=== PATIENT | male | born 1970 | race Caucasian/White ===

== ENCOUNTER 2016-10-29 10:37 | Emergency (ER) | payer BC ==
[~2016-10-29] VITALS: Ht 160 cm; Wt 95.0 kg
[~2016-10-29 10:37] MED LIST: ALBU2.5V3 NEB; ALBU8.5H3 INH; AZIT250T94 PO; BECL8.7A INH; PRED20TA PO; PRED50TA PO
[2016-10-29 10:39] VITALS: Ht 160 cm; Wt 95.0 kg
[2016-10-29] MEDS ORDERED: ALBUTEROL 0.5% (NEB) 2.5 MG/0.5 ML AMP HHN STA (11:27)
[2016-10-29] MEDS ORDERED: IPRATROPIUM (NEB) 0.5 MG/2.5 ML AMP HHN ONE (11:30)
[2016-10-29] MEDS ORDERED: METHYLPREDNISOLONE 125 MG INJ IV ONE (11:30)
[2016-10-29 12:47] LABS: BASOPHILS % 0.6 % (0.0-2.0); EOSINOPHILS # 0.4 10^3/ul (0.0-0.5); EOSINOPHILS % 5.9 % (0.0-7.0); HEMATOCRIT 42.8 % (42.0-52.0); HEMOGLOBIN 14.6 g/dl (14.0-18.0); LYMPHOCYTES # 2.2 10^3/ul (0.8-2.9); LYMPHOCYTES % 30.7 % (15.0-51.0); MEAN CORPUSCULAR HEMOGLOBIN 30.1 pg (29.0-33.0); MEAN CORPUSCULAR HGB CONC 34.1 g/dl (32.0-37.0); MEAN CORPUSCULAR VOLUME 88.2 fl (82.0-101.0); MEAN PLATELET VOLUME 10.1 fl (7.4-10.4); MONOCYTE # 0.6 10^3/ul (0.3-0.9); MONOCYTES % 9.1 % (0.0-11.0); NEUTROPHIL # 3.7 10^3/ul (1.6-7.5); NEUTROPHILS % 53.4 % (39.0-77.0); PLATELET COUNT 290 10^3/UL (140-415); RED BLOOD COUNT 4.85 10^6/ul (4.70-6.10); RED CELL DISTRIBUTION WIDTH 12.4 % (11.5-14.5)
--- NOTE | 2016-10-29 13:27 | RADRPT ---
PROCEDURE: XR Chest. CLINICAL INDICATION: Shortness of breath TECHNIQUE: Chest PA. COMPARISON: 09/17/2016 FINDINGS: The mediastinal structures are unremarkable. The heart is normal in size and configuration. The pu lmonary vascularity is normal. The lung sheridan are unremarkable. No consolidation is identified. The pleural spaces are unremarkable. The axial skeleton is unremarkable. IMPRESSION: No active intrathoracic disease. RPTAT: [facility] .Munir Sandhu MD, MD Date Time Electronically viewed and signed by .Munir Sandhu MD, on 10/29/2016 13:27 .B/
[2016-10-29 13:33] LABS: POTASSIUM 4.1 mmol/L (3.5-5.1)
[2016-10-29 13:36] LABS: CREATININE 0.86 mg/dl (0.61-1.24)
[2016-10-29 13:37] LABS: CALCIUM 9.3 mg/dl (8.4-10.2)
[2016-10-29] MEDS ORDERED: PRED20TA PO (14:07)
[2016-10-29] MEDS ORDERED: AZIT250T94 PO (14:07)
--- NOTE | 2016-10-29 14:10 | ERD ---
ER Documentation Chief Complaint Date/Time DATE: 10/29/16 TIME: 14:08 Chief Complaint Complains of SOB Hx of Asthma HPI This 38-year-old male complains of cough and wheezing and productive mucus worsening over last week. Denies fevers, chest pain, vomiting, abdominal pain. He is using a nebulizer was inhalers at home and Singulair. ROS All systems reviewed and are negative except as per history of present illness. Medications Home Meds Active Scripts Prednisone* (Prednisone*) 20 Mg Tab, 60 MG PO DAILY for 6 Days, TAB 60 mg an hour for 3 days then 40 mg by mouth for 3 days. Prov:LUCY HAWKINS MD 10/29/16 Azithromycin* (Zithromax*) 250 Mg Tablet, 250 MG PO .ZPACK DIRECTED, #6 TAB TAKE 500 MG (2 TABS) THE FIRST DAY THEN 250 MG (1 TAB) DAYS 2-5 Prov:LUCY HAWKINS MD 10/29/16 Azithromycin* (Zithromax*) 250 Mg Tablet, 250 MG PO .ZPACK DIRECTED, #6 TAB TAKE 500 MG (2 TABS) THE FIRST DAY THEN 250 MG (1 TAB) DAYS 2-5 Prov:ZEINAB TITUS PA-C 09/17/16 Prednisone* (Prednisone*) 20 Mg Tab, 40 MG PO DAILY for 4 Days, TAB Prov:ZEINAB TITUS PA-C 09/17/16 Albuterol Sulfate* (Proair HFA*) 8.5 Gm Hfa.aer.ad, 2 PUFF INH Q4, #1 INHALER Prov:ZEINAB TITUS PA-C 09/17/16 Albuterol Sulfate* (Albuterol Sulfate* Neb) 0.083%-3 Ml Neb, 2.5 MG NEB Q4H, # 30 VIAL Prov:ZEINAB TITUS PA-C 09/17/16 Prednisone* (Prednisone*) 50 Mg Tablet, 50 MG PO DAILY, #4 TAB Prov:KEVIN LINK PA-C 08/23/16 Albuterol Sulfate* (Proair HFA*) 8.5 Gm Hfa.aer.ad, 2 PUFF INH Q4, #1 INHALER Prov:KEVIN LINK PA-C 08/23/16 Prednisone* (Prednisone*) 20 Mg Tab, 60 MG PO DAILY for 5 Days, TAB Prov:CHAD OLIVERA MD 03/22/16 Albuterol Sulfate* (Proair HFA*) 8.5 Gm Hfa.aer.ad, 2 PUFF INH Q4, #1 INHALER Prov:CHAD OLIVERA MD 03/22/16 Beclomethasone Dip* (Qvar 40*) 7.3 Gm Inha, 2 PUFF INH BID, #1 INHALER Prov:CHAD OLIVERA MD 03/22/16 Allergies Allergies: Coded Allergies: No Known Allergy (Unverified , 03/22/16) PMhx/Soc History of Surgery: No (left knee) Anesthesia Reaction: No Hx Neurological Disorder: No Hx Respiratory Disorders: Yes (ASTHMA) Hx Cardiac Disorders: No Hx Psychiatric Problems: No Hx Miscellaneous Medical Probl: No Hx Alcohol Use: No Hx Substance Use: No Hx Tobacco Use: No Physical Exam Vitals Vital Signs Date Time Temp Pulse Resp B/P Pulse Ox O2 Delivery O2 Flow Rate FiO2 10/29/16 11:57 82 20 96 21 10/29/16 10:39 98.3 77 20 129/78 95 Physical Exam Const: [] Alert, [id number]. Head: Atraumatic Eyes: Normal Conjunctiva ENT: Normal External Ears, Nose and Mouth. TMs normal Neck: Full range of motion..~ No meningismus. Resp: Clear to auscultation bilaterally. Diffuse wheezing without rales or retractions. Cardio: Regular rate and rhythm, no murmurs Abd: Soft, non tender, non distended. Normal bowel sounds Skin: No petechiae or rashes Back: No midline or flank tenderness Ext: No cyanosis, or edema Neur: Awake and alert Psych: Normal Mood and Affect Result Diagram: 10/29/16 1207 10/29/16 1207 Results 24 hrs Laboratory Tests Test 10/29/16 12:07 Anion Gap 15 Basophils # 0.010^3/ul Basophils % 0.6% Blood Urea Nitrogen 14mg/dl Calcium Level 9.3mg/dl Carbon Dioxide Level 30mmol/L Chloride Level 99mmol/L Creatinine 0.86mg/dl Eosinophils # 0.410^3/ul Eosinophils % 5.9% Glucose Level 83mg/dl Hematocrit 42.8% Hemoglobin 14.6g/dl Lymphocytes # 2.210^3/ul Lymphocytes % 30.7% Mean Corpuscular Hemoglobin 30.1pg Mean Corpuscular Hemoglobin Concent 34.1g/dl Mean Corpuscular Volume 88.2fl Mean Platelet Volume 10.1fl Monocytes # 0.610^3/ul Monocytes % 9.1% Neutrophils # 3.710^3/ul Neutrophils % 53.4% Nucleated Red Blood Cells # 0.010^3/ul Nucleated Red Blood Cells % 0.0/100WBC Platelet Count 28815^3/UL Potassium Level 4.1mmol/L Red Blood Count 4.8510^6/ul Red Cell Distribution Width 12.4% Sodium Level 140mmol/L White Blood Count 7.010^3/ul Current Medications Medications (Trade) Dose Ordered Sig/Leisa Route PRN Reason Start Time Stop Time Status Last Admin Dose Admin Methylprednisolone Sodium Succinate (Solu-Medrol) 125 mg ONCE ONCE IV 10/29/16 11:30 10/29/16 11:31 DC 10/29/16 12:00 Albuterol (Proventil 0.5% (Neb)) 10 mg ONCE STAT N 10/29/16 11:27 10/29/16 11:30 DC 10/29/16 11:54 Ipratropium Moon (Atrovent 0.02% (Neb)) 0.5 mg ONCE ONCE N 10/29/16 11:30 10/29/16 11:31 DC 10/29/16 11:54 Procedures/MDM Chest X-ray 1V Interpreted by me: Soft Tissue: No acute abnormalities Bones: No acute abnormalities Mediastinum/Cardiac Silhouette/Lungs: [No acute abnormalities]. Impression- normal 1 view chest x-ray Patient was given Solu-Medrol 125 mg IV, CBC and BMP are normal. Patient was given 10 mg albuterol and had improved breath sounds after observation treatment. There is no evidence of hypoxemia or respiratory distress. Signs or symptoms do not suggest pulmonary embolism, acute coronary syndrome, acute abdomen. Patient was treated with a prednisone taper at home instructions to continue his albuterol with a prescription of Zithromax as well. Patient is advised to recheck for any worsening symptoms with primary care doctor. Departure Diagnosis: Primary Impression: Asthma with acute exacerbation Asthma severity: unspecified severity Qualified Code: J45.901 - Asthma with acute exacerbation, unspecified asthma severity Condition: Stable Patient Instructions: Asthma, Acute (Adult) Additional Instructions: X-ray y lyle normal. continua machina en casa. Cheque otro vez con pugh doctor primario en el proximo english or regresa para mas o nueva simptomas. LUCY HAWKINS MD Oct 29, 2016 14:10
[2016-10-29 14:30] VITALS: BP 131/85; PULSE 86; RESP 20; TEMP 98.4
== END 2016-10-29 14:30 | disposition home or self-care (01) ==
LOC: FTE 10:37
DX: J45.901 Unspecified asthma with (acute) exacerbation (principal)
CPT/HCPCS: 71010; 80048; 85025; 94644; 96374; J2930; Z7502; Z7610